=== PATIENT | female | born 1990 | race Caucasian/White ===

== ENCOUNTER 2017-05-30 19:24 | Emergency (ER) | payer BC ==
[2017-05-30 19:34] VITALS: BP 140/77
--- NOTE | 2017-05-30 19:42 | ED Physician Documentation ---
PD HPI HEENT - Stated complaint Stated Complaint: THROAT PX - Chief complaint Chief Complaint: Heent - History obtained from History obtained from: Patient - History of Present Illness Timing - onset: Other (Sick for a week with improving sore throat but her significant other has strep throat and she would like to be checked.) Review of Systems Constitutional: denies: Fever, Chills Nose: denies: Rhinorrhea / runny nose, Congestion Throat: reports: Sore throat Respiratory: denies: Cough GI: denies: Nausea, Vomiting : denies: Now [facility] PAST MEDICAL HISTORY - Past Medical History Endocrine/Autoimmune: HyPOthyroidism ALL AROUND PRESSER: Ovarian cysts Psych: Anxiety - Past Surgical History Past Surgical History: Yes - Present Medications Home Medications: Ambulatory Orders Medication Instructions Recorded Confirmed No Known Home Medications [No 05/30/17 05/30/17 Known Home Medications] - Allergies Allergies/Adverse Reactions: Allergies Allergy/AdvReac Type Severity Reaction Status Date / Time No Known Drug Allergies Allergy Verified 05/30/17 19:34 - Social History Does the pt smoke?: No Smoking Status: Never smoker Does the pt drink ETOH?: No Does the pt have substance abuse?: No - Immunizations Immunizations are current?: Yes PD ED PE NORMAL - Vitals Vital signs reviewed: Yes - General General: Alert and oriented X 3, No acute distress - HEENT HEENT: Pharynx benign - Neck Neck: Supple, no meningeal sign, No bony TTP - Neuro Neuro: Alert and oriented X 3, Normal speech Results - Vitals Vitals: Vital Signs - 24 hr 05/30/17 19:32 Temperature 36.6 C Heart Rate 77 Respiratory 16 Rate Blood Pressure 140/77 H O2 Saturation 100 Oxygen O2 Source Room air - Labs Labs: Laboratory Tests 05/30/17 19:31 Group A Strep Rapid Negative Departure - Departure Disposition: Home, Self Care Clinical Impression: Viral pharyngitis Condition: Good Record reviewed to determine appropriate education?: Yes Instructions: ED Pharyngitis Viral Report Pending Comments: Your blood pressure was elevated today on check into the emergency department. This does not mean that you have hypertension, it is a common phenomenon to come to the emergency department and have elevated blood pressure. I recommend that you see your primary care physician within the week to have it rechecked when you are feeling better.
== END 2017-05-30 20:18 | disposition home or self-care (01) ==
LOC: ED 19:24
DX: J02.8 Acute pharyngitis due to other specified organisms (principal); B97.89 Other viral agents as the cause of diseases classified elsewhere; R03.0 Elevated blood-pressure reading, without diagnosis of hypertension; E03.9 Hypothyroidism, unspecified
CPT/HCPCS: 87070; 87430; 99282; 99283

== ENCOUNTER 2018-08-19 22:06 | Outpatient (CLI) | payer BC ==
--- NOTE | 2018-08-20 09:41 | Ultrasound Report ---
Reason: HYPOTHYROIDISM, THYROIDITIS Procedure Date: 08/19/2018 Accession Number: [id number] / [id number] Procedure: US - Head or Neck Soft Tissue CPT Code: FULL RESULT: EXAM: THYROID ULTRASOUND EXAM DATE: 08/19/2018 10:48 PM. CLINICAL HISTORY: Hypothyroidism, thyroiditis. COMPARISON: None. TECHNIQUE: Real time sonographic imaging of the thyroid was performed by the sample mounter. Multiple canvas products sales representative static images were saved for review. FINDINGS: THYROID GLAND: Right Lobe: 4 x 1.1 x 1.0 cm, volume 2.3 cc. Normal background echotexture. Right Lobe Nodules: None. Left Lobe: 4.6 x 1.4 x 1.2 cm, volume 4.0 cc. Normal background echotexture. Left Lobe Nodules: None. Isthmus: 2 cm AP. Isthmic Nodules: None. LYMPH NODES: No adenopathy demonstrated in the central or lateral compartment. OTHER: None. IMPRESSION: Normal thyroid ultrasound. Management recommendations are based on 2015 [place] [employer] Management Guidelines for Adult Patients with Thyroid Nodules and Differentiated Thyroid Cancer. [facility]
== END 2018-08-19 22:07 | disposition home or self-care (01) ==
LOC: DI 22:06
PROVIDERS: ATTEND Physician Assistant Medical
DX: E03.9 Hypothyroidism, unspecified (principal); E06.9 Thyroiditis, unspecified
CPT/HCPCS: 76536

== ENCOUNTER 2019-09-05 14:38 | Outpatient (CLI) | payer OTHER ==
--- NOTE | 2019-09-06 17:14 | Ultrasound Report ---
Reason: LLQ ABD PAIN,HX OF RUPTURED OVARIAN CYST Procedure Date: 09/05/2019 Accession Number: [id number] / [id number] Procedure: US - Pelvic w/Transvaginal CPT Code: Final Report FULL RESULT: EXAM: PELVIC ULTRASOUND EXAM DATE: 09/05/2019 03:40 PM. CLINICAL HISTORY: Left lower quadrant abdominal pain. History of ruptured ovarian cyst. LMP 08/23/2019. COMPARISON: 02/21/2014 11:14 PM ABDOMEN/PELVIS W/ 02/21/2014 10:25 PM. TECHNIQUE: Realtime transabdominal pelvic scan performed to identify the uterus and adnexa and as an overview of other pelvic structures, followed by transvaginal scan to provide greater detail of the uterus and adnexa, with static image documentation. FINDINGS: Uterus: 7 x 3 x 4.2 cm, volume 45.9 cc. Anteverted position. Normal overall size and echotexture. There may be an arcuate configuration to the uterus. Masses: None. Endometrium: 10 mm. Homogeneous echotexture. Trilaminar appearance. No increased vascularity. No endometrial masses. Cervix: Unremarkable. Right Ovary: 2.7 x 2.4 x 2.8 cm, volume 9.4 cc. Normal echotexture and blood flow. Normal subcentimeter follicles. Left Ovary: 3.1 x 2.1 x 3.3 cm, volume 11.3 cc. Normal echotexture and blood flow. 2.1 x 1.8 x 2.4 cm dominant cyst noted. Smaller adjacent follicles. Free Fluid: Moderate volume of pelvic free fluid. Other: None. IMPRESSION: 1. Normal sonographic appearance of the uterus and endometrium. 2. Normal ovaries with a dominant left ovarian 2.4 cm follicular cyst. 3. Moderate volume of pelvic free fluid. [facility]
== END 2019-09-05 14:39 | disposition home or self-care (01) ==
LOC: DI 14:38
PROVIDERS: ATTEND Physician Assistant Medical
DX: N83.02 Follicular cyst of left ovary (principal)
CPT/HCPCS: 76830; 76856